=== PATIENT | female | born 1990 | race Caucasian/White ===

== ENCOUNTER 2016-12-24 12:50 | Emergency (ER) | payer OTHER ==
[~2016-12-24] VITALS: Ht 160 cm; Wt 72.7 kg
--- NOTE | 2016-12-24 13:01 | ED.REPORT ---
HPI-Back Pain Under 40 Date of Service Dec 24, 2016 ED Provider: Dr. Egan Pt is a 26 y/o female who is 29 weeks presenting to the ED c/o tailbone pain onset last night. The patient was coughing last night and felt a pop in her tailbone and went to sleep. Her pain is exacerbated with walking, coughing, or any forms of pressure. Her only previous injury to her tailbone was a contusion. She denies CP, SOB, abdominal pain, N/V/D, dysuria, urinary frequency, vaginal bleeding, weakness or numbness of the legs, bowel or bladder incontinence. The patient currently smokes cigarettes. She denies drug or alcohol use. She has not had a discussion with a physician about her yet. Nursing Notes Stated Complaint: TAILBONE PAIN Nursing Notes Reviewed: Yes Allergies: Coded Allergies: No Known Allergies (Unverified , 08/22/16) General Time Seen by MD: 13:00 Chief Complaint Other (Tailbone pain) Hx Obtained From: Patient Arrived By: Walk-in Sudden in Onset?: Yes Onset Occurred: 5 - 8 hours ago Symptom Duration: Since onset Location: : Coccyx Quality: Painful Severity: Current: Moderate Severity: Maximum: Moderate Exacerbated by: Movement Past Medical History Past Medical History none reported Past Surgical History none reported Smoking History Unknown if Ever Smoker Social History heroin enemas daily Drug Use: Other Other Social History: Poor social support, Local resident Ambulatory Status Independent Review of Systems Cardiovascular: Denies: Chest pain GI: Denies: Abdominal pain, Diarrhea, Nausea, Vomiting Female: Denies: Dysuria, Vaginal bleeding - abnl Musculoskeletal: Reports: Lumbar pain Neurologic: Denies: Bladder dysfunction, Bowel dysfunction, Numbness, Weakness Complete sys rev & neg: except as marked. Physical Exam Initial Vital Signs Vital Signs (First) Date Time Temp Pulse Resp B/P Pulse Ox O2 Delivery O2 Flow Rate FiO2 12/24/16 13:04 36.2 94 20 120/70 99 Room Air Initial VS: Reviewed, Vital signs normal Head / Eyes: Atraumatic, Normocephalic, PERRL ENT: Mucous membranes moist, Conjunctiva normal, No scleral icterus Neck: Supple, Full range of motion Respiratory: Breath sounds normal, Clear to auscultation, No respiratory distress Cardiovascular: Regular rate & rhythm, Heart sounds normal, Intact distal pulses Extremities: Vascular intact, Neuro intact, No swelling, No tenderness Skin: Warm, Dry, No cyanosis Psychiatric: Mood/affect normal, Behavior normal, Normal thought content General/Constitutional: Awake, Alert, No acute distress, Cooperative, Not toxic appearing Back: Atraumatic, Full range of motion, Painless range of motion, No midline vertebral tend, No paraspinal tenderness Very tender in the tailbone region Neurologic: Oriented X3, Speech NL, No motor deficits, No sensory deficits, CN II - XII intact, Cerebellar NL, Memory NL Abdomen: Atraumatic, Soft, Non-tender Gravid abdomen consistent with 30 week Re-Eval/Medical Decision Med Decision/Clinical Course Pt is a 26 y/o female who is 29 weeks presenting to the ED c/o tailbone pain onset last night. The story is quite atypical as she states that she was sitting in a chair coughed and had sudden onset of sharp tailbone pain is worse with sitting, walking and movement. The pain has been present ever since. She denies any other associated symptoms, abdominal pain or vaginal bleeding. Upon arrival the patient is afebrile with stable vital signs and appears uncomfortable. Abdominal examination is consistent with a gravid uterus though otherwise completely unremarkable without any tenderness. Examination of the buttock region and tailbone region reveals tenderness about the tailbone without any obvious deformity erythema or swelling. There is no vaginal bleeding present. Patient reported significant pain and requested pain medication. She was given 650 mg of oral Tylenol. I had a long discussion with the patient and explained that we generally do not recommend imaging studies such as CT scan in the setting of . I explained that her pain seemed most likely musculoskeletal in nature. 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 Therefore, we opted not to obtain x-rays. She was provided with an ice pack. At this time her abdominal examination is completely benign and she has had no vaginal bleeding or contractions suggestive of a threatened or placental abruption as a cause of her presentation. Of note, the patient continues to smoke despite being . I discussed the risks associated with this of which she is already aware. She has been followed by an [facility] in [place] though has been spending more time in [place] recently related to family issues. We referred her to an [facility] here in [place]. Follow-up and return precautions were reviewed in detail and the patient was discharged in stable condition. Re-Evaluation/Progress : Time of Eval: 13:46 Re-Evaluation/Progress Note: Pt rechecked. Informed pt of plan for treatment. Pt understands and agrees with plan for treatment. F/U instructions and RTER warnings given. All questions addressed. Counseled Regarding: Diagnosis, Need for follow-up, When/why to return to ED Discharge & Departure Impression: Primary Impression: Sprain of coccyx Encounter type: initial encounter Qualified Code: S33.8XXA - Sprain of other parts of lumbar spine and pelvis, initial encounter Additional Impressions: Weeks of gestation: 30 weeks Qualified Code: Z3A.30 - 30 weeks gestation of Tobacco abuse disorder Disposition: Home All VS Reviewed: Yes Condition: Stable Patient Instructions: Low Back Strain (ED) Additional Instructions: Thank you for seeking care at the emergency room. It is difficult for us to make definitive diagnoses in the ED but we believe that you are experiencing a tailbone strain. Our primary goal today in the ED was to evaluate you for any life-threatening conditions. Your evaluation was reassuring. The diagnosis is made more difficult because of your which limits imaging. I recommend Tylenol for pain. Please use the [facility] referral number below. I would like you to call the number today to set up an appointment to be seen in close follow-up. You should return to the ED immediately if you develop severe uncontrolled pain , vaginal bleeding, rectal bleeding, bloody or black stools, fevers, vomiting, cough, shortness of breath, chest pain, lightheadedness, weakness or any other concerning signs or symptoms. Thank you for letting us partake in your care today. Referrals: Winnie Leslie MD [facility] Scribe Attestation Portions of this note were transcribed by Bhavesh Rhodes. I, Dr. Egan personally performed the history, physical exam and medical decision-making; I reviewed and confirmed the accuracy of the information in the transcribed note. Signed by Robert Spencer, 12/24/16 - [id number] Herb Egan MD Dec 24, 2016 13:01 BHAVESH RHODES Dec 24, 2016 13:32
[2016-12-24 13:04] VITALS: BP 120/70; PULSE 94; RESP 20; O2SAT 99
[2016-12-24 14:14] VITALS: BP 126/82; PULSE 86; RESP 20; O2SAT 99
== END 2016-12-24 14:15 | disposition home or self-care (01) ==
LOC: SED 12:50
DX: O9A.213 Injury, poisoning and certain other consequences of external causes complicating pregnancy, third trimester (principal); S33.8XXA Sprain of other parts of lumbar spine and pelvis, initial encounter; X50.1XXA Overexertion from prolonged static or awkward postures, initial encounter; Y93.89 Activity, other specified; Y92.89 Other specified places as the place of occurrence of the external cause; Y99.8 Other external cause status; O99.333 Smoking (tobacco) complicating pregnancy, third trimester; F17.200 Nicotine dependence, unspecified, uncomplicated; Z87.828 Personal history of other (healed) physical injury and trauma; Z3A.30 30 weeks gestation of pregnancy